=== PATIENT | male | born 1970 | race Asian ===

== ENCOUNTER 2023-12-06 09:34 | Day surgery (SDC) | payer BC, SELFPAY ==
[2023-12-02 14:31] VITALS: BMI 39.8
--- NOTE | 2023-12-06 10:35 | HO.ANESPROP2 ---
Documented by User: Brandee Herrera NP 12/03/23 10:30 HPI - Anesthesia Eval Consult details Narrative: 53yo M for Colonoscopy Anesthesia Pre-Procedure Meds Is the patient on any of the following meds?: SGLT2 Inhib [facility] Past Medical History Medical History (Updated 12/02/23 @ 14:36 by Sana Pond RN) HTN (hypertension) Diabetes Surgical History Surgical History (Updated 12/02/23 @ 14:36 by Sana Pond RN) No pertinent past surgical history Social History Social History (Updated 12/02/23 @ 14:38 by Sana Pond RN) Household Members: Spouse Patient Tobacco Use Status: Current someday Tobacco user Tobacco use type: Cigarette Advance Directives: No Advance Directives Information Provided: Yes Meds Allergies Allergy/AdvReac Type Severity Reaction Status Date / Time No Known Allergies Allergy Verified 12/02/23 14:38 Home Medications ?Medication ?Instructions ?Recorded ?Confirmed ?Last Taken ?Type aspirin 81 mg tablet,delayed 81 mg PO DAILY 12/02/23 12/02/23 Unknown History release glipizide 2.5 mg tablet 2.5 mg PO BID 12/02/23 12/02/23 Unknown History lisinopril 10 mg tablet 10 mg PO DAILY 12/02/23 12/02/23 Unknown History sitagliptin phos 50 mg-metformin 1 tab PO DAILY 12/02/23 12/02/23 Unknown History ER 1,000 mg tablet,extend rel 24h mp (Janumet XR) Exam Height,Weight and Vital Signs: Height 5 ft Weight 92.533 kg Assessment and Plan Assessment Anesthesia Assessment: Chart Reviewed Documented by User: Ghazala Kennedy DO 12/06/23 10:39 HPI - Anesthesia Eval Anesthesia Pre-Procedure Meds Is the patient on any of the following meds?: SGLT2 Inhib If yes to any meds - educate patient: Pt education - increased risk of aspiration and/or euvolemic DKA [facility] Past Medical History Medical History (Updated 12/02/23 @ 14:36 by Sana Pond RN) HTN (hypertension) Diabetes Family History Family history of problems with anesthesia: No Surgical History Surgical History (Updated 12/02/23 @ 14:36 by Sana Pond RN) No pertinent past surgical history History of Problems with Anesthesia: No Social History Social History (Updated 12/02/23 @ 14:38 by Sana Pond RN) Household Members: Spouse Patient Tobacco Use Status: Current someday Tobacco user Tobacco use type: Cigarette Advance Directives: No Advance Directives Information Provided: Yes Meds Allergies Allergy/AdvReac Type Severity Reaction Status Date / Time No Known Allergies Allergy Verified 12/02/23 14:38 Home Medications ?Medication ?Instructions ?Recorded ?Confirmed ?Last Taken ?Type aspirin 81 mg tablet,delayed 81 mg PO DAILY 12/02/23 12/02/23 Unknown History release glipizide 2.5 mg tablet 2.5 mg PO BID 12/02/23 12/02/23 Unknown History lisinopril 10 mg tablet 10 mg PO DAILY 12/02/23 12/02/23 Unknown History sitagliptin phos 50 mg-metformin 1 tab PO DAILY 12/02/23 12/02/23 Unknown History ER 1,000 mg tablet,extend rel 24h mp (Janumet XR) Exam Exam Date and Time: 12/06/23 1035 Airway Mallampati Class: I TM Dist: >3cm Neck ROM: Full Loose/Missing/Broken Teeth: No (patient denies any loose or broken teeth) Heart: S1S2 Lungs: CTAB Assessment and Plan Assessment Anesthesia Assessment: Anesthesia Plan Discussed and Chart Reviewed Final Anesthetic Review Family History of Problems with Anesthesia: No History of Problems with Anesthesia: No NPO: Yes ASA Class: II Final Preanesthetic Review: No Changes in Pt Med Stat, Meds/Allgs Chart Reviewed, Consent Obtained/Reviewed and Anes Risks/Benef Reviewed Patient Risk: Low Procedure Risk: Low Anesthetic Plan Anesthetic Plan: GA (patient did not stop Janumet; Dr. Adame is deeming an emergent procedure and would like to proceed under GA) and Agree w/ Assess. and Plan Disposition: Standard PACU
[2023-12-06 10:37] VITALS: BMI 26.7
[2023-12-06] MEDS: Lactated Ringers 1,000 ML 100 ML IVCONT (10:53)
[2023-12-06 10:57] VITALS: BP 158/84; PULSE 67; RESP 16; TEMP 36.8; O2SAT 100
[2023-12-06 10:59] LABS: Glucose, Whole Blood 170 mg/dL (60-115)
[2023-12-06 12:31] VITALS: BP 145/91; PULSE 90; RESP 16; TEMP 36.7; O2SAT 100
[2023-12-06 12:36] VITALS: BP 130/84; PULSE 84; RESP 16; O2SAT 99
--- NOTE | 2023-12-06 12:38 | PM.OP ---
Brief Operative Note Date of Service: 12/06/23 Pre-op diagnosis: Anemia, Screening Post-op diagnosis: other (R/O celiac disease, Colon polyps) Procedure: EGD with biopsies, Colonoscopy to the cecum and TI with cold snare polypectomy x 2, and hot snare polypectomy in the transverse colon x 1 Surgeon: Darien Adame MD Anesthesia: GETA Was an [employer] used for this Procedure?: No Estimated blood loss (mL): 2.0 Pathology: other (A. Descending duodenum B. EG Junction at 38cm C. Ascending colon polyp D. Transverse colon polyp E. Polyp at 20cm) Condition: stable Disposition: PACU
[2023-12-06 12:41] VITALS: BP 139/96; PULSE 87; RESP 20; O2SAT 100
[2023-12-06 12:46] VITALS: BP 157/100; PULSE 82; RESP 20; O2SAT 100
[2023-12-06 13:00] VITALS: BP 152/100; PULSE 90; RESP 16; TEMP 36.4; O2SAT 99
--- NOTE | 2023-12-06 13:43 | OP_ITS ---
DATE OF SERVICE: 12/06/2023 SURGEON: Darien Adame MD INDICATIONS: The patient presents for evaluation of iron deficiency anemia and colorectal cancer screening. Full consent has been obtained from him for this, including risks of bleeding and perforation. PREOPERATIVE DIAGNOSIS: Iron deficiency anemia and colorectal cancer screening. POSTOPERATIVE DIAGNOSIS: PROCEDURE PERFORMED: Esophagogastroduodenoscopy with biopsies, and colonoscopy to the cecum and terminal ileum with cold snare polypectomy x2, and hot snare polypectomy x1. ESTIMATED BLOOD LOSS: COMPLICATIONS: ANESTHESIA: General anesthesia as he had not stopped one of his diabetes medications in time, and there was a concern about retained gastric contents. I felt it was important to proceed with the procedure with general anesthesia due to his iron deficiency anemia. ASSISTANTS: SPECIMENS: POSTOPERATIVE DIAGNOSES: Iron deficiency anemia and colorectal cancer screening, small hiatal hernia, rule out celiac disease, colon polyps, diverticulosis, and internal hemorrhoids. DESCRIPTION OF PROCEDURE: The patient was in the supine position. The Olympus video gastroscope was passed in the posterior oropharynx and upper esophagus under direct vision. The scope was passed slowly into the distal esophagus. The gastroesophageal junction appeared at 38 cm. This appeared minimally irregular, but without any esophagitis nor Ivan mucosa. The scope entered the stomach there was a small hiatal hernia. The scope was advanced to the pylorus, and the duodenum was cannulated to the descending portion. The duodenum including the bulb appeared normal without mass or ulceration. Biopsies were obtained for the 2nd and 3rd portions of duodenum. The scope was withdrawn back to the stomach. The gastric antrum and body appeared normal with good peristalsis. The scope was retroflexed, visualizing the proximal stomach carefully, which appeared normal, without any sign of mass or ulceration. Of note, there was no sign of any retained food in the stomach. The scope was withdrawn back to the esophagus. Biopsies were obtained at the EG junction at 38 cm. Proximal to that, the esophageal mucosa appeared normal. The scope was withdrawn from the patient. He was turned around for the colonoscopy and placed in the left lateral decubitus position. The digital rectal exam revealed no abnormalities. The Olympus video pediatric colonoscope was entered into the rectum and advanced easily to the cecum. Once in the cecum, I did identify normal-appearing cecal pouch with appendiceal orifice and a normal-appearing ileocecal valve. The terminal ileum was cannulated and appeared normal. The scope was withdrawn back in the colon. The entire cecum and ileocecal valve appeared normal. The scope was slowly withdrawn assessing all mucosal surfaces carefully. Preparation was excellent. In the proximal ascending colon was an approximately 5 or 6 mm polyp, which was removed by cold snare polypectomy and recovered by suction. The polypectomy site appeared clean, without any sign of residual polyp nor significant bleeding. In the transverse colon was an approximately 8 mm polyp, which was removed by hot snare polypectomy, recovered by suction. The polypectomy site appeared clean, without any sign of residual polyp nor bleeding. At 20 cm was an approximately 5 mm polyp, which was removed by cold snare polypectomy, recovered by suction. The polypectomy site appeared clean, without any sign of residual polyp nor significant bleeding. I did not visualize any sign of other polyps, colitis, nor any angiodysplasias. There was a mild amount of sigmoid diverticulosis. In the rectum, scope was retroflexed visualizing small internal hemorrhoids, but no other pathology. The rectal mucosa appeared normal. The scope was straightened and withdrawn from the patient. He tolerated the procedures well and was returned to the recovery area in stable condition. IMPRESSION: 1. Colon polyps. 2. Diverticulosis. 3. Internal hemorrhoids. 4. Rule out celiac disease. 5. Minimal changes of reflux with associated small hiatal hernia. PLAN: The results of the pathology will be checked. If the polyp is a tubular adenoma, I would recommend a followup coloscopy in 5 years. In regard to his anemia, there is no definitive source found on today's exams. His hemoglobin in September was 11.3 with an iron saturation of only 13% with a ferritin of only 19. He does advise me that he had a recent blood count with a hemoglobin of 11.3. I advised him that he should speak with his primary care physician about stopping his aspirin completely as I do not see any definitive indication for that. He has been also advised to begin 1 iron supplement daily. I do not think he needs any acid suppression therapy as he has no active upper GI complaints, and there were no significant findings on the upper endoscopy. He will be seen in followup, and depending upon the clinical course, he may need further evaluation with a small bowel video capsule study. This has been discussed with his as well. MD YESICA Oh/SHI / [id number]
== END 2023-12-06 13:15 | disposition home or self-care (01) ==
PROVIDERS: PCP Internal Medicine; Visit Provider Internal Medicine
PROC: 0DJD8ZZ Inspection of Lower Intestinal Tract, Via Natural or Artificial Opening Endoscopic (ICD-10-PCS; CPT 45378; principal; 2023-12-06 10:30)
DX: Z12.11 Encounter for screening for malignant neoplasm of colon (principal); D12.2 Benign neoplasm of ascending colon; D12.3 Benign neoplasm of transverse colon; D12.5 Benign neoplasm of sigmoid colon; K57.30 Diverticulosis of large intestine without perforation or abscess without bleeding; K64.8 Other hemorrhoids; K44.9 Diaphragmatic hernia without obstruction or gangrene; D50.9 Iron deficiency anemia, unspecified; E11.9 Type 2 diabetes mellitus without complications; I10 Essential (primary) hypertension; Z79.82 Long term (current) use of aspirin; Z79.84 Long term (current) use of oral hypoglycemic drugs; Z79.899 Other long term (current) drug therapy; F17.210 Nicotine dependence, cigarettes, uncomplicated
CPT/HCPCS: 45385; 43239; 82947; 88305; 88313; J0330; J1100; J1596; J2405; J2704; J2765